=== PATIENT | female | born 1995 | race African-American/Black ===

== ENCOUNTER 2019-08-26 22:24 | Outpatient (CLI) | payer MEDICAID, OTHER ==
[2019-08-26] MEDS ORDERED: LACTATED RINGERS 1,000 ML IV ONE (23:08)
[2019-08-26] MEDS ORDERED: ACETAMINOPHEN 325 MG TAB PO ONE (23:09)
[2019-08-27 00:56] VITALS: BP 120/71
== END 2019-08-27 01:15 | disposition home or self-care (01) ==
LOC: TRG 22:24
PROVIDERS: ATTEND Obstetrics & Gynecology
DX: O21.2 Late vomiting of pregnancy (principal); O26.893 Other specified pregnancy related conditions, third trimester; R05 Cough; R10.9 Unspecified abdominal pain; R50.9 Fever, unspecified; O46.93 Antepartum hemorrhage, unspecified, third trimester; Z3A.31 31 weeks gestation of pregnancy
CPT/HCPCS: 96361; 96374; J0690; J7120

== ENCOUNTER 2019-09-16 12:58 | Observation (INO) | payer OTHER ==
[2019-09-16] MEDS ORDERED: LACTATED RINGERS 500 ML IV ONE (13:30)
[2019-09-16 14:06] LABS: Amorphous Crystals,Urine Few; Bilirubin,Urine NEG (Negative); Blood,Urine NEG (Negative); Color,Urine Yellow (Yellow); Mucus,Urine FEW /HPF; Protein,Urine <15 mg/dL mg/dL (Negative); RBC,Urine < 1.0 /HPF (0.0-6.0); Urobilinogen,Urine < 2.0 mg/dL (<2.0)
[2019-09-16] MEDS ORDERED: MAGNESIUM SULFATE 4 GM/100 ML BAG IV ONE (15:57)
[2019-09-16] MEDS ORDERED: ZOLPIDEM 5 MG TAB PO PRN (16:07)
[2019-09-16] MEDS ORDERED: ACETAMINOPHEN 325 MG TAB PO PRN (16:08)
[2019-09-16] MEDS ORDERED: MORPHINE 4 MG/1 ML INJ IV PRN (16:09)
[2019-09-16] MEDS: LACTATED RINGERS 1,000 ML IV SCH (16:57)
[2019-09-16] MEDS: AMPICILLIN/NS 2 GM/100 ML 2 GM/100 ML BAG IV SCH (17:32)
[2019-09-16] MEDS: BETAMET ACET/BETAMET NA PH 6 MG/ML INJ 5 ML MDV IM SCH (17:38)
[2019-09-16] MEDS: MAGNESIUM SULFATE 40GM/1000ML 40 GM/1,000 ML BAG IV SCH (18:18)
--- NOTE | 2019-09-16 18:35 | History and Physical Report ---
History of Present Illness Date of examination: 09/16/19 Date of admission: 09/16/19 13:30 Chief complaint: Presents from the office with a compliant of CTX and a cervical exam of at 34 Weeks. History of present illness: Transferred into care at 20 5/7 Weeks from [facility] INTENSIVE CARE UNIT REGISTERED NURSE. Third trimester has been complicated by CTX and labor concerns. Past History Past Medical History: other (High Cholesterol) Past Surgical History: no surgical history Family/Genetic History: diabetes, hypertension Social history: no significant social history, single - Obstetrical History Expected Date of Delivery: 10/28/19 Actual Gestation: 34 Week(s) 0 Day(s) : 1 Medications and Allergies Allergies Allergy/AdvReac Type Severity Reaction Status Date / Time No Known Allergies Allergy Verified 06/17/14 23:33 Home Medications Medication Instructions Recorded Confirmed Last Taken Type Ondansetron [Zofran Odt] 4 mg PO Q4-6H PRN #14 tab.rapdis 06/18/14 Unknown Rx Prednisone [Prednisone 10 mg 10 mg PO .TAPER #1 tab.ds.pk 06/18/14 Unknown Rx (6-Day Pack, 21 Tabs)] Sulfamethoxazole/Trimethoprim 1 each PO BID #20 tablet 06/18/14 Unknown Rx [Bactrim Ds] Active Meds: Active Medications Acetaminophen (Tylenol) 650 mg PO Q4H PRN PRN Reason: Pain, Mild (1-3) Betamethasone Acet/Betameth SodPhos (Celestone Soluspan) 12 mg IM Q24H TOM Stop: 09/17/19 17:01 Last Admin: 09/16/19 17:38 Dose: 12 mg Documented by: Magnesium Sulfate (Magnesium Sulfate 40gm/1000ml) 40 gm in 1,000 mls @ 50 mls/hr IV DIRECT TOM Ampicillin Sodium (Ampicillin/Ns 2 Gm/100 Ml) 2 gm in 100 mls @ 100 mls/hr IV Q6HR TOM; Protocol Stop: 09/18/19 12:59 Last Admin: 09/16/19 17:32 Dose: 100 mls/hr Documented by: Lactated Ringer's (Lactated Ringers) 1,000 mls @ 125 mls/hr IV DIRECT TOM Last Admin: 09/16/19 16:57 Dose: 125 mls/hr Documented by: Morphine Sulfate (Morphine) 5 mg IV Q4H PRN PRN Reason: Pain , Severe (7-10) Zolpidem Tartrate (Ambien) 10 mg PO QHS PRN PRN Reason: Sleep Review of Systems All systems: negative Genitourinary: contractions (states she is NOT feeling her CTX) Rectal Exam: deferred - Vital Signs Vital signs: Vital Signs Pulse Pulse Ox 114 H 96 09/16/19 13:28 09/16/19 13:28 Temp Pulse Resp BP Pulse Ox 98.0 F 102 H 116/66 96 09/16/19 13:34 09/16/19 18:26 09/16/19 18:20 09/16/19 18:26 - Physical Exam Breasts: Positive: normal Cardiovascular: Regular rate Lungs: Positive: Clear to auscultation, Normal air movement Abdomen: Positive: normal appearance, soft, normal bowel sounds Genitourinary (Female): Positive: normal external genitalia, normal perenium Vagina: Positive: normal moisture Uterus: Positive: enlarged Anus/Rectum: Positive: normal perianal skin - Obstetrical FHR: category 1 Uterine Contraction Monitor Mode: External Cervical Dilatation: 3.5 Cervical Effacement Percentage: 70 station: -2 Uterine Contraction Pattern: Regular Uterine Tone Measurement Phase: Resting Uterine Contraction Intensity: Mild Results All other labs normal. Assessment and Plan A: IUP @ 34 Weeks Labor P: Admit to L&D per Routine Orders Ampicillin 2G IV q 6 hours Betamethsome 12mg IM x 2 Doses Magnesium Sulfate 4G/loading dose/ 2G hourly Regular Diet Bedrest with BRP Tylenol for Mild Pain Ambien 10mg PO at bedtime Dr. Foley Consulted
[2019-09-16] MEDS ORDERED: OXYTOCIN 20 UNIT/1000ML DRIP 0 MILLIUNITS/0 ML BAG IV ONE (22:50)
--- NOTE | 2019-09-16 23:00 | Ultrasound Report ---
OB biophysical profile. 09/16/2019. HISTORY: Evaluate presentation. FINDINGS: A single viable intrauterine is in the cephalic position. Biophysical profile is 06/04. IMPRESSION: 1. position cephalic. 2. Biophysical profile 06/04. Signer Name: Jose Harper MD Signed: 09/16/2019 10:56 PM Workstation Name: [id number] ([id number]
[2019-09-17] MEDS: AMPICILLIN/NS 2 GM/100 ML 2 GM/100 ML BAG IV SCH ×4 (07:21→17:55)
--- NOTE | 2019-09-17 12:58 | Progress Note ---
Assessment and Plan - Patient Problems (1) labor in third trimester without delivery Current Visit: Yes Status: Acute Plan to address problem: Patient was started on MgSO4, antibiotics and celestone. notify NICU MFM to be made aware. Subjective - Subjective Date of service: 09/17/19 Principal diagnosis: contractions Interval history: Was admitted 09/16/2019 at 34wks with contractions. No ROM. Fetus moving well. Patient reports: movement normal, contractions, no new complaints, no loss of fluid, no vaginal bleeding Objective - Vital Signs Vital Signs: Vital Signs - 12hr 09/17/19 09/17/19 09/17/19 00:56 01:00 01:02 Temperature Pulse Rate 103 H 113 H 105 H Respiratory Rate Blood Pressure Blood Pressure [Left] O2 Sat by Pulse 94 94 94 Oximetry 09/17/19 09/17/19 09/17/19 01:05 01:07 01:11 Temperature Pulse Rate 108 H 109 H 101 H Respiratory Rate Blood Pressure Blood Pressure [Left] O2 Sat by Pulse 94 93 96 Oximetry 09/17/19 09/17/19 09/17/19 01:17 01:21 01:22 Temperature Pulse Rate 110 H 104 H 98 H Respiratory Rate Blood Pressure 106/55 Blood Pressure [Left] O2 Sat by Pulse 96 96 Oximetry 09/17/19 09/17/19 09/17/19 01:27 01:32 01:37 Temperature Pulse Rate 110 H 105 H 105 H Respiratory Rate Blood Pressure Blood Pressure [Left] O2 Sat by Pulse 98 96 95 Oximetry 09/17/19 09/17/19 09/17/19 01:42 01:46 01:51 Temperature Pulse Rate 101 H 106 H 111 H Respiratory Rate Blood Pressure 109/55 Blood Pressure [Left] O2 Sat by Pulse 96 96 96 Oximetry 09/17/19 09/17/19 09/17/19 01:57 02:02 02:06 Temperature Pulse Rate 106 H 110 H 111 H Respiratory Rate Blood Pressure Blood Pressure [Left] O2 Sat by Pulse 96 96 96 Oximetry 09/17/19 09/17/19 09/17/19 02:12 02:17 02:20 Temperature Pulse Rate 102 H 105 H 99 H Respiratory Rate Blood Pressure 104/55 Blood Pressure [Left] O2 Sat by Pulse 96 96 Oximetry 09/17/19 09/17/19 09/17/19 02:22 02:27 02:32 Temperature Pulse Rate 111 H 106 H 106 H Respiratory Rate Blood Pressure Blood Pressure [Left] O2 Sat by Pulse 97 96 96 Oximetry 09/17/19 09/17/19 09/17/19 02:37 02:42 02:47 Temperature Pulse Rate 107 H 111 H 105 H Respiratory Rate Blood Pressure Blood Pressure [Left] O2 Sat by Pulse 96 96 96 Oximetry 09/17/19 09/17/19 09/17/19 02:51 02:52 02:57 Temperature Pulse Rate 102 H 109 H 109 H Respiratory Rate Blood Pressure 102/52 Blood Pressure [Left] O2 Sat by Pulse 95 96 Oximetry 09/17/19 09/17/19 09/17/19 03:02 03:07 03:11 Temperature Pulse Rate 107 H 99 H 103 H Respiratory Rate Blood Pressure Blood Pressure [Left] O2 Sat by Pulse 96 97 97 Oximetry 09/17/19 09/17/19 09/17/19 03:17 03:21 03:22 Temperature Pulse Rate 104 H 105 H 109 H Respiratory Rate Blood Pressure 89/51 Blood Pressure [Left] O2 Sat by Pulse 97 97 Oximetry 09/17/19 09/17/19 09/17/19 03:27 03:32 03:37 Temperature Pulse Rate 110 H 109 H 104 H Respiratory Rate Blood Pressure Blood Pressure [Left] O2 Sat by Pulse 97 97 94 Oximetry 09/17/19 09/17/19 09/17/19 03:42 03:47 03:51 Temperature Pulse Rate 106 H 107 H 108 H Respiratory Rate Blood Pressure 89/51 Blood Pressure [Left] O2 Sat by Pulse 94 96 Oximetry 09/17/19 09/17/19 09/17/19 03:52 03:57 04:02 Temperature Pulse Rate 108 H 107 H 114 H Respiratory Rate Blood Pressure Blood Pressure [Left] O2 Sat by Pulse 96 97 95 Oximetry 09/17/19 09/17/19 09/17/19 04:07 04:12 04:17 Temperature Pulse Rate 113 H 115 H 109 H Respiratory Rate Blood Pressure Blood Pressure [Left] O2 Sat by Pulse 96 96 95 Oximetry 09/17/19 09/17/19 09/17/19 04:21 04:22 04:27 Temperature Pulse Rate 113 H 111 H 113 H Respiratory Rate Blood Pressure 94/51 Blood Pressure [Left] O2 Sat by Pulse 97 95 Oximetry 09/17/19 09/17/19 09/17/19 04:32 04:37 04:42 Temperature Pulse Rate 121 H 122 H 119 H Respiratory Rate Blood Pressure Blood Pressure [Left] O2 Sat by Pulse 95 96 96 Oximetry 09/17/19 09/17/19 09/17/19 04:47 04:50 04:52 Temperature Pulse Rate 115 H 113 H 112 H Respiratory Rate Blood Pressure 108/58 Blood Pressure [Left] O2 Sat by Pulse 97 97 Oximetry 09/17/19 09/17/19 09/17/19 04:57 05:02 05:07 Temperature Pulse Rate 116 H 119 H 113 H Respiratory Rate Blood Pressure Blood Pressure [Left] O2 Sat by Pulse 96 97 97 Oximetry 09/17/19 09/17/19 09/17/19 05:12 05:17 05:20 Temperature Pulse Rate 110 H 118 H 110 H Respiratory Rate Blood Pressure 104/59 Blood Pressure [Left] O2 Sat by Pulse 97 96 Oximetry 09/17/19 09/17/19 09/17/19 05:22 05:27 05:32 Temperature Pulse Rate 109 H 110 H 110 H Respiratory Rate Blood Pressure Blood Pressure [Left] O2 Sat by Pulse 98 97 96 Oximetry 09/17/19 09/17/19 09/17/19 05:37 05:42 05:47 Temperature Pulse Rate 114 H 110 H 111 H Respiratory Rate Blood Pressure Blood Pressure [Left] O2 Sat by Pulse 96 96 96 Oximetry 09/17/19 09/17/19 09/17/19 05:50 05:52 05:57 Temperature Pulse Rate 109 H 107 H 108 H Respiratory Rate Blood Pressure 92/53 Blood Pressure [Left] O2 Sat by Pulse 95 96 Oximetry 09/17/19 09/17/19 09/17/19 06:02 06:07 06:08 Temperature Pulse Rate 110 H 108 H 106 H Respiratory Rate Blood Pressure Blood Pressure [Left] O2 Sat by Pulse 95 95 94 Oximetry 09/17/19 09/17/19 09/17/19 06:12 06:13 06:17 Temperature Pulse Rate 121 H 109 H 107 H Respiratory Rate Blood Pressure Blood Pressure [Left] O2 Sat by Pulse 95 94 95 Oximetry 09/17/19 09/17/19 09/17/19 06:19 06:20 06:22 Temperature Pulse Rate 109 H 129 H 125 H Respiratory Rate Blood Pressure 89/53 Blood Pressure [Left] O2 Sat by Pulse 94 97 Oximetry 09/17/19 09/17/19 09/17/19 06:27 06:32 06:37 Temperature Pulse Rate 115 H 111 H 115 H Respiratory Rate Blood Pressure Blood Pressure [Left] O2 Sat by Pulse 96 95 96 Oximetry 09/17/19 09/17/19 09/17/19 06:42 06:47 06:50 Temperature Pulse Rate 123 H 120 H 118 H Respiratory Rate Blood Pressure 98/50 Blood Pressure [Left] O2 Sat by Pulse 96 96 Oximetry 09/17/19 09/17/19 09/17/19 06:52 06:57 07:02 Temperature Pulse Rate 115 H 117 H 119 H Respiratory Rate Blood Pressure Blood Pressure [Left] O2 Sat by Pulse 96 97 97 Oximetry 09/17/19 09/17/19 09/17/19 07:07 07:12 07:17 Temperature Pulse Rate 122 H 118 H 117 H Respiratory Rate Blood Pressure Blood Pressure [Left] O2 Sat by Pulse 97 96 97 Oximetry 09/17/19 09/17/19 09/17/19 07:20 07:22 07:27 Temperature Pulse Rate 113 H 116 H 121 H Respiratory Rate Blood Pressure 101/51 Blood Pressure [Left] O2 Sat by Pulse 96 97 Oximetry 09/17/19 09/17/19 09/17/19 07:32 07:37 07:42 Temperature Pulse Rate 113 H 113 H 116 H Respiratory Rate Blood Pressure Blood Pressure [Left] O2 Sat by Pulse 98 98 98 Oximetry 09/17/19 09/17/19 09/17/19 07:47 07:50 07:52 Temperature Pulse Rate 118 H 110 H 112 H Respiratory Rate Blood Pressure 103/56 Blood Pressure [Left] O2 Sat by Pulse 97 96 Oximetry 09/17/19 09/17/19 09/17/19 07:57 08:02 08:07 Temperature Pulse Rate 116 H 116 H 111 H Respiratory Rate Blood Pressure Blood Pressure [Left] O2 Sat by Pulse 97 97 97 Oximetry 09/17/19 09/17/19 09/17/19 08:12 08:17 08:21 Temperature Pulse Rate 116 H 113 H 113 H Respiratory Rate Blood Pressure 88/49 Blood Pressure [Left] O2 Sat by Pulse 97 96 Oximetry 09/17/19 09/17/19 09/17/19 08:22 08:27 08:32 Temperature Pulse Rate 112 H 118 H 118 H Respiratory Rate Blood Pressure Blood Pressure [Left] O2 Sat by Pulse 96 97 97 Oximetry 09/17/19 09/17/19 09/17/19 08:37 08:42 08:47 Temperature Pulse Rate 115 H 114 H 119 H Respiratory Rate Blood Pressure Blood Pressure [Left] O2 Sat by Pulse 97 97 97 Oximetry 09/17/19 09/17/19 09/17/19 08:51 08:52 08:57 Temperature Pulse Rate 118 H 119 H 114 H Respiratory Rate Blood Pressure 95/54 Blood Pressure [Left] O2 Sat by Pulse 97 96 Oximetry 09/17/19 09/17/19 09/17/19 09:02 09:07 09:12 Temperature Pulse Rate 110 H 110 H 117 H Respiratory Rate Blood Pressure Blood Pressure [Left] O2 Sat by Pulse 96 96 96 Oximetry 09/17/19 09/17/19 09/17/19 09:17 09:21 09:22 Temperature Pulse Rate 115 H 113 H 108 H Respiratory Rate Blood Pressure 87/50 Blood Pressure [Left] O2 Sat by Pulse 95 95 Oximetry 09/17/19 09/17/19 09/17/19 09:26 09:31 09:36 Temperature Pulse Rate 124 H 115 H 114 H Respiratory Rate Blood Pressure Blood Pressure [Left] O2 Sat by Pulse 97 96 97 Oximetry 09/17/19 09/17/19 09/17/19 09:41 09:46 09:51 Temperature Pulse Rate 121 H 119 H 115 H Respiratory Rate Blood Pressure Blood Pressure [Left] O2 Sat by Pulse 97 97 97 Oximetry 09/17/19 09/17/19 09/17/19 09:56 10:01 10:06 Temperature Pulse Rate 119 H 116 H 114 H Respiratory Rate Blood Pressure Blood Pressure [Left] O2 Sat by Pulse 96 96 97 Oximetry 09/17/19 09/17/19 09/17/19 10:11 10:16 10:21 Temperature Pulse Rate 120 H 116 H 117 H Respiratory Rate Blood Pressure Blood Pressure [Left] O2 Sat by Pulse 97 97 97 Oximetry 09/17/19 09/17/19 09/17/19 10:22 10:26 10:37 Temperature 98.1 F Pulse Rate 115 H 119 H 115 H Respiratory 18 Rate Blood Pressure 102/50 Blood Pressure 102/50 [Left] O2 Sat by Pulse 97 97 Oximetry - Exam Lungs: Normal air movement FHR: category 1 - Labs Labs: Abnormal Labs 09/17/19 09/17/19 00:59 08:07 Magnesium 4.60 H 4.80 H Laboratory Results - last 24 hr 09/16/19 09/16/19 09/17/19 13:24 13:50 00:59 Magnesium 4.60 H Urine Color Yellow Urine Turbidity Clear Urine pH 7.0 Ur Specific [place] 1.019 Urine Protein <15 mg/dl Urine Glucose (UA) 50 Urine Ketones Neg Urine Blood Neg Urine Nitrite Neg Urine Bilirubin Neg Urine Urobilinogen < 2.0 Ur Leukocyte Esterase Neg Urine WBC (Auto) 3.0 Urine RBC (Auto) < 1.0 U Epithel Cells (Auto) 3.0 Amorphous Crystals Few Urine Mucus Few Fibronectin Positive 09/17/19 08:07 Magnesium 4.80 H Urine Color Urine Turbidity Urine pH Ur Specific [place] Urine Protein Urine Glucose (UA) Urine Ketones Urine Blood Urine Nitrite Urine Bilirubin Urine Urobilinogen Ur Leukocyte Esterase Urine WBC (Auto) Urine RBC (Auto) U Epithel Cells (Auto) Amorphous Crystals Urine Mucus Fibronectin
[2019-09-17] MEDS: MAGNESIUM SULFATE 40GM/1000ML 40 GM/1,000 ML BAG IV SCH (15:05)
[2019-09-17] MEDS: BETAMET ACET/BETAMET NA PH 6 MG/ML INJ 5 ML MDV IM SCH (17:07)
[2019-09-17] MEDS: LACTATED RINGERS 1,000 ML IV SCH (17:57)
[2019-09-18] MEDS: AMPICILLIN/NS 2 GM/100 ML 2 GM/100 ML BAG IV SCH ×2 (02:01→08:00)
[2019-09-18] MEDS: LACTATED RINGERS 1,000 ML IV SCH (08:00)
[2019-09-18 08:38] VITALS: BP 88/51
== END 2019-09-18 12:10 | disposition home or self-care (01) ==
LOC: TRG 12:58 → LD 13:30
PROVIDERS: ADMIT Obstetrics & Gynecology; ATTEND Obstetrics & Gynecology
DX: O60.03 Preterm labor without delivery, third trimester (principal); O99.283 Endocrine, nutritional and metabolic diseases complicating pregnancy, third trimester; E78.00 Pure hypercholesterolemia, unspecified; Z79.899 Other long term (current) drug therapy; Z3A.34 34 weeks gestation of pregnancy
CPT/HCPCS: 36415; 76819; 81001; 82731; 83735; 96365; 96366; 96368; 96372; G0378; J0290; J0702; J3475; J7120; 96360; J2590

== ENCOUNTER 2019-09-22 00:46 | Outpatient (CLI) | payer OTHER ==
[2019-09-22] MEDS ORDERED: LACTATED RINGERS 1,000 ML IV ONE (01:28)
[2019-09-22] MEDS ORDERED: TERBUTALINE 1 MG/1 ML INJ SUB-Q ONE (03:11)
[2019-09-22] MEDS ORDERED: LACTATED RINGERS 1,000 ML IV SCH (04:00)
[2019-09-22] MEDS ORDERED: NIFEdipine*For Tocolysis only* 10 MG CAPSULE ONE (04:38)
[2019-09-22] MEDS ORDERED: NIFEdipine*For Tocolysis only* 10 MG CAPSULE PO ONE (04:39)
[2019-09-22 04:41] VITALS: BP 113/64
== END 2019-09-22 06:00 | disposition home or self-care (01) ==
LOC: TRG 00:46
PROVIDERS: ATTEND Obstetrics & Gynecology
DX: O62.9 Abnormality of forces of labor, unspecified (principal); Z3A.34 34 weeks gestation of pregnancy
CPT/HCPCS: 96360; 96372; J3105; J7120

== ENCOUNTER 2019-09-30 11:24 | Outpatient (CLI) | payer OTHER ==
[2019-09-30 11:42] VITALS: BP 119/73
== END 2019-09-30 12:58 | disposition home or self-care (01) ==
LOC: TRG 11:24
PROVIDERS: ATTEND Obstetrics & Gynecology
DX: O47.03 False labor before 37 completed weeks of gestation, third trimester (principal); Z3A.36 36 weeks gestation of pregnancy
CPT/HCPCS: 59025

== ENCOUNTER 2019-10-01 00:49 | Inpatient (IN) | payer OTHER ==
[2019-10-01] MEDS ORDERED: LACTATED RINGERS 1,000 ML ONE (01:44)
[2019-10-01] MEDS ORDERED: MINERAL OIL 30 ML ORAL LIQD PO PRN (02:41)
[2019-10-01] MEDS ORDERED: BUTORPHANOL 2 MG/1 ML INJ IV PRN (02:41)
[2019-10-01] MEDS ORDERED: AMPICILLIN/NS 2 GM/100 ML 2 GM/100 ML BAG IV ONE ×2 (02:41→02:48)
[2019-10-01] MEDS ORDERED: LIDOCAINE (2%) 20 MG/1 ML VIAL 20 ML MDV INFILTRATI ONE ×4 (02:41→05:54)
[2019-10-01] MEDS ORDERED: fentaNYL 100 MCG/2 ML INJ IV PRN (02:41)
[2019-10-01] MEDS ORDERED: BUTORPHANOL 2 MG/1 ML INJ ONE (02:48)
[2019-10-01] MEDS ORDERED: OXYTOCIN 20 UNIT/1000ML DRIP 20 UNITS/1,000 ML BAG IV SCH (03:00)
[2019-10-01] MEDS ORDERED: LACTATED RINGERS 1,000 ML IV SCH ×2 (03:00→06:00)
[2019-10-01 03:59] LABS: Hematocrit 38.3 % (30.3-42.9); Hemoglobin 12.8 gm/dl (10.1-14.3); Mean Corpuscular HGB Conc 34 % (30-34); Mean Corpuscular Volume 90 fl (79-97); Platelet Count 309 K/mm3 (140-440); Red Blood Count 4.27 M/mm3 (3.65-5.03); Red Cell Distribution Width 14.1 % (13.2-15.2)
[2019-10-01] MEDS ORDERED: OXYTOCIN 10 UNIT/1 ML INJ ONE (05:28)
[2019-10-01] MEDS ORDERED: WITCH HAZEL/ GLYCERIN PAD TP PRN (05:56)
[2019-10-01] MEDS ORDERED: LANOLIN/ZINC/DIMETHICONE (LANSINOH) 7 GM TP PRN (05:56)
[2019-10-01] MEDS ORDERED: diphenhydrAMINE 25 MG CAP PO PRN (05:56)
[2019-10-01] MEDS ORDERED: HYDROcodone/ACETAMINOPHEN 5-325 MG TAB PO PRN (05:56)
[2019-10-01] MEDS ORDERED: AMPICILLIN/NS 1 GM/50 ML 1 GM/50 ML BAG IV SCH (06:00)
--- NOTE | 2019-10-01 06:09 | Procedure Note ---
OB Delivery Note - Delivery Date of Delivery: 10/01/19 (0517) Surgeon: SLOANE JOSÉ Estimated blood loss: 200cc - Vaginal Delivery presentation: vertex Delivery position: OP Intrapartum events: labor-<37 weeks Delivery induction: none Delivery monitor: external FHT, external uterine Route of delivery: Delivery placenta: spontaneous Delivery cord: 3 umbilical vessels Episiotomy: none Delivery laceration: 2nd degree Delivery repair: vicryl Anesthesia: local Delivery comments: of a live 6'2 female over a 2nd degree perineal laceration under IV pain control with Apgars of 8 and 9 at 0517 on 10/01/2019. directly to maternal abd/chest, skin to skin contact. Spontaneous delivery of placenta co mplete and intact with [place] side presenting at 0521. Fundus is firm and midline located 4 below the U. Lochia is scant. Delayed cord clamping and cutting; Cord cut by the Father of the Baby. Perineal laceration repaired with 2-[address]-1 under local 2% Lidocaine. Cord blood collected; placenta discarded. - Infant A at 1 minute: 8 at 5 minutes: 9 Gender: Female (6'2)
--- NOTE | 2019-10-01 06:14 | History and Physical Report ---
History of Present Illness Date of examination: 10/01/19 Date of admission: 10/01/19 04:34 Chief complaint: Labor pains History of present illness: Transferred into care at 20 5/7 Weeks, third trimester complicated by labor concerns, received Betamethsome series at 34 Weeks. Past History Past Medical History: no pertinent history Past Surgical History: no surgical history Family/Genetic History: diabetes, hypertension Social history: no significant social history, single - Obstetrical History Expected Date of Delivery: 10/28/19 Actual Gestation: 36 Week(s) 1 Day(s) : 1 Medications and Allergies Allergies Allergy/AdvReac Type Severity Reaction Status Date / Time No Known Allergies Allergy Verified 06/17/14 23:33 Active Meds: Active Medications Acetaminophen/Hydrocodone Bitart ([place] 5/325) 2 each PO Q6H PRN PRN Reason: Pain, Moderate (4-6) Bisacodyl (Dulcolax) 10 mg WI BID PRN PRN Reason: Constipation Butorphanol Tartrate (Stadol) 2 mg IV Q2H PRN PRN Reason: Pain , Severe (7-10) Diphenhydramine HCl (Benadryl) 25 mg PO Q6H PRN PRN Reason: Itching Fentanyl (Sublimaze) 100 mcg IV Q2H PRN PRN Reason: Labor Pain Oxytocin/Sodium Chloride (Pitocin/Ns 20 Unit/1000ml Drip) 20 units in 1,000 mls @ 125 mls/hr IV DIRECT TOM Lactated Ringer's (Lactated Ringers) 1,000 mls @ 125 mls/hr IV DIRECT TOM Last Admin: 10/01/19 03:24 Dose: 125 mls/hr Documented by: Ampicillin Sodium (Ampicillin/Ns 1 Gm/50 Ml) 1 gm in 50 mls @ 100 mls/hr IV Q4HR TOM; Protocol Lactated Ringer's (Lactated Ringers) 1,000 mls @ 125 mls/hr IV DIRECT TOM Ibuprofen (Ibuprofen) 600 mg PO Q6H TOM Lidocaine (Xylocaine 2%) 20 ml INFILTRATI ONCE ONE Stop: 10/01/19 05:55 Mineral Oil (Mineral Oil) 30 ml PO QHS PRN PRN Reason: Constipation Multi-Ingredient Ointment (Lansinoh) 1 applic TP PRN PRN PRN Reason: Sore Nipples Multivitamins/Iron/Calcium ( Vitamin) 1 each PO QDAY TOM Sodium Chloride (Sodium Chloride Flush Syringe 10 Ml) 10 ml IV PRN NR Witch Nella/Glycerin (Tucks Pad) 1 each TP PRN PRN PRN Reason: Hemorrhoid/cleansing/soothing Review of Systems All systems: negative - Vital Signs Vital signs: Vital Signs Pulse BP 122 H 118/58 10/01/19 05:34 10/01/19 05:34 Temp Pulse Resp BP Pulse Ox 116 H 119/58 10/01/19 06:04 10/01/19 06:04 - Physical Exam Breasts: Positive: normal Cardiovascular: Regular rate Lungs: Positive: Clear to auscultation, Normal air movement Abdomen: Positive: normal appearance, soft, normal bowel sounds Genitourinary (Female): Positive: normal external genitalia, normal perenium Vagina: Positive: normal moisture Uterus: Positive: enlarged Anus/Rectum: Positive: normal perianal skin - Obstetrical FHR: category 1 Uterine Contraction Monitor Mode: External Cervical Dilatation: 5 (SROM of clear fluids) Uterine Contraction Pattern: Regular Uterine Tone Measurement Phase: Resting Uterine Contraction Intensity: Moderate Results Result Diagrams: 10/01/19 03:05 Abnormal lab results 10/01/19 Range/Units 03:05 WBC 15.0 H (4.5-11.0) K/mm3 All other labs normal. Assessment and Plan A: IUP @ 36 1/7 weeks SROM GBS Unknown P: Admit to L&D per Routine Orders Anticipate GBS Prophylaxis
[2019-10-01] MEDS: IBUPROFEN 600 MG TAB PO SCH ×2 (09:24→18:04)
[2019-10-01] MEDS: PRENATAL VIT27-FE FUMARATE-FOLIC ACID VIT TAB PO SCH (09:25)
[2019-10-01 20:26] LABS: Hematocrit 32.9 % (30.3-42.9); Hemoglobin 10.8 gm/dl (10.1-14.3)
[2019-10-02] MEDS: IBUPROFEN 600 MG TAB PO SCH ×4 (04:26→17:47)
[2019-10-02] MEDS ORDERED: TETANUS,DIPH,PERTUSS(ACELL) VACCINE 0.5 ML SYRINGE IM ONE (06:00)
[2019-10-02] MEDS: PRENATAL VIT27-FE FUMARATE-FOLIC ACID VIT TAB PO SCH (09:49)
--- NOTE | 2019-10-02 11:23 | Progress Note ---
Assessment and Plan - Patient Problems (1) (normal spontaneous vaginal delivery) Current Visit: Yes Status: Acute Plan to address problem: Continue routine PP orders Anticipate d/c home tomorrow (2) Anemia Current Visit: Yes Status: Acute Qualifiers: Anemia type: other cause Other causes of anemia: acute posthemorrhagic Qualified Code(s): D62 - Acute posthemorrhagic anemia Plan to address problem: Asymptomatic Increase iron rich foods into diet Subjective - Subjective Date of service: 10/02/19 Principal diagnosis: Ctxs Interval history: See admission H & P; OB delivery summary and PP progress notes Patient reports: appetite normal, voiding normally, pain well controlled, flatus, ambulating normally [place]: doing well, bottle feeding (and ) Objective - Vital Signs Latest vital signs: Vital Signs Temp Pulse Resp BP BP Pulse Ox 10/02/19 08:07 98.1 F 93 H 18 103/67 10/02/19 00:24 97.9 F 113 H 16 127/79 97 10/01/19 21:13 98.3 F 94 H 16 119/77 97 10/01/19 20:18 98.3 F 97 H 16 119/77 97 10/01/19 12:09 99.3 F 117 H 18 122/72 96 Intake and Output 10/01/19 10/02/19 10/02/19 23:59 07:59 15:59 Intake Total 240 Balance 240 Intake: Oral 240 Other: Total, Intake Amount 240 # Voids Void 1 1 - Exam Breasts: Present: normal Cardiovascular: Present: Regular rate Lungs: Present: Normal air movement Abdomen: Present: soft Uterus: Present: firm, fundal height below umbilicus (U-2) Extremities: Present: normal Deep Tendon Reflex Grade: Normal +2 Incision: Present: other (2nd degree laceration, healing as expected)
--- NOTE | 2019-10-02 11:28 | Discharge Summary ---
Providers - Providers Date of Admission: 10/01/19 04:34 Date of discharge: 10/03/19 (0900) Attending physician: JACKOSN NAYAK MD Primary care physician: JACKSON NAYAK MD Hospitalization Reason for admission: IUP - Delivery: Episiotomy: none Laceration: 2nd degree (healing as expected) Other procedures: none complications: none Discharge diagnosis: other (S/P ; Anemia) Condition at discharge: Good Disposition: DC-01 TO HOME OR SELFCARE - Discharge Diagnoses (1) (normal spontaneous vaginal delivery) Status: Acute (2) Anemia Status: Acute Qualifiers: Anemia type: other cause Other causes of anemia: acute posthemorrhagic Qualified Code(s): D62 - Acute posthemorrhagic anemia Plan - Provider Discharge Summary Activity: routine, no sex for 6 weeks, no heavy lifting 4 weeks, no strenuous exercise Diet: other (Iron rich diet) Additional instructions: [] Smoking cessation referral if applicable(refer to patient education folder for contact #) [] Refer to [facility] Booklet Call your doctor immediately for: * Fever > 100.5 * Heavy vaginal bleeding ( >1 pad per hour) * Severe persistent headache * Shortness of breath * Reddened, hot, painful area to leg or breast * Drainage or odor from incision. * Keep incision clean and dry at all times and follow doctor's instructions regarding bathing/showering - Follow up plan Follow up: JACKSON NAYAK MD [Primary Care Provider] - 6 Weeks
[2019-10-02] MEDS ORDERED: FLU VACC QUAD 2019-20 (3 YR UP)/PF 60 MCG/0.5 ML SYRINGE IM ONE (12:00)
[2019-10-03] MEDS: IBUPROFEN 600 MG TAB PO SCH ×3 (00:13→13:11)
[2019-10-03] MEDS: PRENATAL VIT27-FE FUMARATE-FOLIC ACID VIT TAB PO SCH (10:28)
[2019-10-03 16:50] VITALS: BP 104/64
== END 2019-10-03 16:25 | disposition home or self-care (01) | DRG 775 ==
LOC: TRG 00:49 → LD 00:51 → TRG 04:33 → LD 04:34 → OB 08:45
PROVIDERS: ADMIT Obstetrics & Gynecology; ATTEND Obstetrics & Gynecology
PROC: 10E0XZZ Delivery of Products of Conception, External Approach (ICD-10-PCS; principal; 2019-10-01)
PROC: 0KQM0ZZ Repair Perineum Muscle, Open Approach (ICD-10-PCS; 2019-10-01)
PROC: 3E0234Z Introduction of Serum, Toxoid and Vaccine into Muscle, Percutaneous Approach (ICD-10-PCS; 2019-10-02)
DX: O60.14X0 Preterm labor third trimester with preterm delivery third trimester, not applicable or unspecified (principal); Z3A.36 36 weeks gestation of pregnancy; Z37.0 Single live birth; Z23 Encounter for immunization; Z83.3 Family history of diabetes mellitus; Z82.49 Family history of ischemic heart disease and other diseases of the circulatory system; O90.81 Anemia of the puerperium; D62 Acute posthemorrhagic anemia; O70.1 Second degree perineal laceration during delivery
CPT/HCPCS: 36415; 59025; 85014; 85018; 85027; 86592; 86850; 86900; 86901; 90471; 90686; 90715; G0378; G0008; J0290; J0595; J2590; J7120